=== PATIENT | male | born 1960 | race Caucasian/White ===

== ENCOUNTER 2020-07-25 07:08 | Observation (INO) | payer MEDICARE, SELFPAY ==
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
[2020-07-07 08:16] LABS: Absolute Lymphocyte Count 1.21 X10^3/uL (0.83-4.51); Absolute Neutrophil Count 4.8 X10^3/uL (2.0-7.7); Basophil# 0.07 X10^3/uL; Eosinophil# 0.47 X10^3/uL; Eosinophils% 6.7 % (0-5); Hematocrit 45.1 % (40-54); Hemoglobin 14.7 g/dL (13.0-16.5); Lymphocyte # 1.21 X10^3/ul (4.0); Lymphocyte % 17.2 % (19-41); Mean Corp Hgb Conc 32.6 g/dL (32-36); Mean Corpuscular Hgb 30.3 pg (27.0-32.0); Monocyte# 0.47 X10^3/uL; Monocyte% 6.7 % (0-10); NRBC Flagged by Analyzer 0 % (0-5); Neutrophil # 4.78 X10^3/uL (2.7-7.7); Platelet Count 267 K/mm3 (150-450); RBC Distribution Width CV 11.9 % (11.6-14.6); RBC Distribution Width SD 41.1 fl (35.1-43.9); Red Blood Count 4.85 M/mm3 (4.6-6.2)
[2020-07-07 08:37] LABS: Anion Gap 6 (5-15); BUN 11 mg/dL (7-18); Calcium,Total 9.2 mg/dL (8.5-10.1); Chloride 103 mmol/L (98-107); Creatinine, Serum 0.92 mg/dL (0.70-1.30); EST Glomerular Filtration Rate 90 mL/min (>60); Est Glom Filt Rate - Afr Amer 109 mL/min (>60); Glucose 114 mg/dL (74-106); Potassium 4.2 mmol/L (3.5-5.1); Sodium Level 136 mmol/L (136-145)
[2020-07-11 12:27] LABS: Magnesium 2.1 mg/dL (1.6-2.6)
[2020-07-25] VITALS (15 sets, daily range): BP systolic 93–121; BP diastolic 62–86; PULSE 74–99; RESP 16–18; TEMP 36.1–37.1; O2SAT 93–100; BMI 23.2
[2020-07-25] MEDS: Scopolamine 1mg/72hr Patch 1 PATCH TD (07:15)
[2020-07-25] MEDS: Lactated Ringers 1,000 ML 75 ML IV (07:20)
[2020-07-25] MEDS: Lactated Ringers 1,000 ML 999 ML IV ×2 (07:20→11:00)
[2020-07-25] MEDS: Gabapentin 600 MG Tablet PO (07:40)
[2020-07-25] MEDS: Acetaminophen 500 MG Tablet 1000 MG PO ×3 (07:59→21:48)
[2020-07-25 09:21] LABS: Bedside Glucose 104 mg/dL (70-110)
--- NOTE | 2020-07-25 09:45 | FEM_PTH ---
PATIENT: ISATU FLOWERS LOC: [facility]3 U#:[id number] AGE/SX: 60/M ROOM: DC310 RE07/25/[address]: Dr. James Valentin MD : 1960 BED: 1 DIS: 07/26/2020 SPEC #: [id number] RECD: 07/25/20 11:33 STATUS: WESLEY MADERA #: [id number] CAMILO: 07/25/20 09:[address]: Mahendra Dowell DEPT: SURGICAL PATHOLOGY RECD BY: Cecile Cook ENTERED: 07/25/20 13:23 SP TYPE: FEM HEAD OTHR DR: Dr. Herve Dowell MD Tissues: Femoral region, NOS Procedures: Decalcification bone/plaque Surgery Specimen Level IV HEADER OPERATION: ERAS, total hip anterior approach PRE-OP DIAGNOSIS: Severe right hip osteoarthritis TISSUE SUBMITTED: Femoral head MICROSCOPIC DIAGNOSIS Right hip, total hip resection: Severe degenerative joint disease. AM:lester 07/30/2020 MICROSCOPIC DESCRIPTION Slides are reviewed. GROSS DESCRIPTION Received is one container designated right femoral head. The specimen consists of a grijalva femoral head with portion of femoral neck. The femoral head measures 5.5 x 6 x 4.5 cm. Also present in the container is a detached piece of bone consistent with portion of femoral neck measuring 3.5 x 3.5 x 1 cm. No soft tissue is identified. The articular surface displays prominent osteophyte formation, eburnation and bone erosion. Cork Mixer sections are submitted in one cassette after decalcification. / SJ:lester 07/25/20 TC:5 CPT: 47560, 04289
[2020-07-25] MEDS: Cefazolin 2 GM in 0.9% Normal Saline 100 ML IV (10:03)
--- NOTE | 2020-07-25 10:44 | RAD_ITS ---
STUDY: X-RAY - PELVIS AND RIGHT HIP REASON FOR EXAM: Male, 60 years old. TOTAL ANTERIOR HIP TECHNIQUE: 1 views of the pelvis and hip. COMPARISON: None. FINDINGS: Status post right total hip replacement. There is good alignment. RAD/Hip 1 view with Pelvis IMPRESSION: Status post right total hip replacement. There is good alignment. Electronically Signed: Phuc De Leon MD at 8:40 EST , Service support ,
[2020-07-25] MEDS: Lactated Ringers 1,000 ML 125 ML IV ×2 (11:00→14:03)
--- NOTE | 2020-07-25 11:14 | OP.PCM_ITS ---
Report of Operation Date of Procedure: 07/25/20 Pre-Operative Diagnosis: Right hip severe osteoarthritis Post-Operative Diagnosis: Right hip severe osteoarthritis Surgery/Procedure Performed:: Right minimally invasive direct anterior total hip replacement Description of Surgical Findings:: Stable hip with equal leg length silk screen printer machine: Meredith Ibarra Type of Anesthesia:: Spinal Anesthesiologist: Errol Choi Special Medications: 2 g Ancef, 1 g TXA at incision, 1 g TXA closure, 10 mg Decadron, joint cocktail (5 mg Duramorph, 30 mL of 0.5% Ropivicaine, 1000 units of epinephrine, 30 mg of Toradol) Specimen's removed: bony cuts Estimated Blood Loss (mL): 250 Fluids Replaced: 1500 ml Description of Procedure: Components used: 1. Accolade 2 [place] femoral stem size 5 132? 2. Rody trident 2 acetabular shell size 56 mm 3. Rody X3 polyethylene F3 4. Rody Biolox delta 36mm, -5mm femoral head Brief history operative indications: 60 yo m who failed conservative measures for their hip osteoarthritis. X-rays were consistent with osteoarthritis including joint space narrowing, osteophyte formation and subchondral cysts. Total hip replacement was discussed with the patient with risks and benefits including but not limited to blood loss, DVTs, PEs, neurovascular damage, dislocation, general risks of anesthesia including loss of life. Patient demonstrated an understanding medical clearance is obtained the patient was consented for surgery. Procedure: On the date of procedure the patient's r hip was marked in the preoperative area. Patient was then taken back to the operating room where anesthesia assumed control of the C-spine and airway and administered anesthetic. Patient was transferred to the operating table and placed in the supine position. The hips were placed at the break of the bed and a sacral bump was placed. The R lower extremity was then prepped out in a sterile fashion using chlorhexidine while the surgeon scrubbed. The PA was vital in the positioning of the patient. Upon reentering the room the R lower extremity was draped in the standard orthopedic fashion and the incision was marked. A timeout was called and everyone agreed upon the side, the site, the procedure be performed, antibody given, and patient's identity. At this time incision was made through skin, subcutaneous tissue, and fat down to fascia. The fascia was then incised and the TFL was retracted laterally. A retractor was placed on the lateral border of the femoral neck. Attention was directed to the inferior portion of the approach and all crossing vessels were identified and appropriately coagulated. A retractor was then placed on the medial portion of the femoral neck. The anterior capsule was then cleared of all soft tissue and then H shaped capsulotomy was made. The retractors were then placed inside the capsule. The femoral neck was identified and a cleanup cut was made. At this time a power corkscrew was used to remove the femoral head. Attention was then turned toward the acetabulum where the soft tissues were appropriately retracted and the acetabulum was sequentially reamed to 56 mm. A 56 mm cup was then selected and impacted into place. Acetabular liner was impacted into place and locking mechanism was verified. The position of the acetabular cup was then verified under live fluoroscopy. Attention was then turned to the femur. Soft tissue releases on the medial and lateral femoral neck were appropriately done, the leg was externally rotated and lateralized. A Larsen retractor was placed medially and proximally to the greater trochanter this allowed appropriate visualization and exposure of the femoral canal. Rongeour was then used to remove excess lateral bone. A canal finder and entry broach were used to open the proximal canal. Once we verified we were down the femoral canal we subsequently broached up to a size 5 femur. The appropriate neck was placed in the previously selected head was trialed with a -5 mm neck. Traction was pulled and the hip was reduced with internal rotation. Once it was appropriately reduced and stability was checked. There was minimal shuck, equal leg lengths and appropriate stability with hyperextension and external rotation as well as with 90? flexion and internal rotation. Fluoroscopy was then also used to verify the position of the components and leg lengths using the contralateral side for comparison. The trial components were then dislocated the proximal femur was again exposed and the components were removed from the wound. The final components were verified and opened. The wound was copiously irrigated out with normal saline. The acetabulum was checked for any residual debris. The final components were placed and impacted. Traction and internal rotation were again used to reduce the hip. After adequate reduction the hip remained stable with appropriate leg lengths. The final components were once again checked with live fluoroscopy and were found to be satisfactory. The wound was then copiously irrigated with normal saline once more, and hemostasis was obtained. Closure was then done using #1 Vicryl runner to close the fascia. A 2-0 vicryl interuppted sutures were used to close the subcutaneous skin. A 3-0 Monocryl and Steri-Strips were used for final skin closure. A Silverlon dressing was placed. Patient was awakened by anesthesia and transferred [facility]. Radha ent was then transferred to the PACU for recovery. Postoperative plan: Patient will get 24 hours postop antibiotics. Patient will get in-house physical therapy and will be weight-bear as tolerated. Patient will follow up in office in 2 weeks for a wound check and x-rays. Aspirin 81 mg twice daily. - Complications none - Admit VTE Documentation VTE Present on Admission: No VTE Mechan Device Prophylaxis: SCD's, Thigh High JOHANNA Hose VTE Pharm Prophylaxis ordered?: Yes
--- NOTE | 2020-07-25 12:08 | RAD_ITS ---
STUDY: X-RAY - PELVIS AND RIGHT HIP REASON FOR EXAM: Male, 60 years old. Post Op -- AP both hips on single chapincito/lateral of op hip PACU TECHNIQUE: 2 views of the pelvis and hip. COMPARISON: None. FINDINGS: The patient is status post right hip replacement. There is good alignment. Postoperative soft tissue changes. RAD/Hip Min 2 Views (Portable) IMPRESSION: Status post right total hip replacement. There is good alignment. Postoperative soft tissue changes. Electronically Signed: Phuc De Leon MD at 12:27 EST , Service support ,
[2020-07-25] MEDS: Ensure Surgery 237 ML LIQUID PO ×2 (13:57→18:04)
[2020-07-25] MEDS: Gabapentin 100 MG Capsule PO ×2 (13:58→17:30)
--- NOTE | 2020-07-25 15:12 | NURSING ---
RN CM Assessment Introduced role of RN CM to patient and Selena at bedside.? Patient is alert, oriented and able?to participate in RN CM Assessment. ?Care providers, pharmacy, and demographics verified. Admit Dx: Rt THR Barriers/Issues: None PCP: Herve Dowell Specialists: Ortho- Dr Mahendra Dowell, Cardio- Dr Kin Larsen, Neuro- Dr Lynch Preferred Pharmacy: [facility], [place] Insurance: [facility] A/B Rx Benefit:?No, has Script Save with [facility] LNOK: Selena Neville LW/HPOA: States has a HPOA done, aware if brought in will place a copy on file. POA- son Kip Neville #[phone]. Living Arrangements:? Lives with , 26yo dtr, 36yo son Kip- is a hazmat truck driver and only home on the weekends. ADL?s: Independent with ambulation prior, has been using a single point cane for the past month. Independent with ADLs. Transportation: Both patient and drive, will transport upon DC. DME: Walk in shower w/grab bars, Cane, RTS, lift chair, 2WW HHC: None SNF: None Goal: Home and does not think will have any needs. Already scheduled for outpatient PT at [facility], first appointment Thursday07/30/2020. Has a walker at bedside. Denies any issues, questions, or concerns with DC planning at this time. Aware RNCM will remain available for any emerging needs. DC PLAN: Home with no additional needs identified at this time. RNCM f/u on PT/OT. LEANA Jacobo
[2020-07-25] MEDS: oxyCODONE 5 MG Tablet PO ×2 (15:32→21:44)
--- NOTE | 2020-07-25 15:46 | PN_ITS ---
Subjective: Seen post op in his room. He complains of mild discomfort in right hip, but denies any other new complaints. Vitals/I&O's: Vital Signs Temp Pulse Resp BP Pulse Ox 36.6 C 97 18 121/75 H 93 07/25/20 15:12 07/25/20 15:12 07/25/20 15:12 07/25/20 15:12 07/25/20 15:12 Oxygen Flow Rate (L/min) 6 Oxygen Delivery Method Room Air Weight: 73.4 kg Body Mass Index (BMI) 23.2 Intake and Output for Last 24 Hours 07/23/20 07/24/20 07/25/20 23:59 23:59 23:59 Intake Total 3340.75 / 3340.75 Balance 3340.75 / 3340.75 General: Alert, No apparent distress HEENT: Atraumatic, Normocephalic Oral: Moist Mucosa, No Gingival or Mucosal Lesions/ Ulcerations Neck: No Nodes, Thyroid Normal Size and Texture Lungs: Clear to auscultation, Normal air movement, No rhonchi, No wheeze Cardiovascular: Regular rate, Regular Rhythm, Normal S1, Normal S2, No murmurs Abdomen: Bowel Sounds Present, Soft, Non Tender, Non-Distended, No Hepato- splenomegaly Extremities: No edema, No Calf Tenderness, - - SCDs in place Skin: No rashes, No breakdown Psych/Mental Status: Normal Affect, Appropriate Microbiology Past 72 Hours 07/24/20 08:30 Interface Orders SARS-CoV-2 Antigen (Rapid) - Final Laboratory Results 07/25/20 07:28: POC Glucose 104 Current Medications Acetaminophen (Acetaminophen 500 Mg Tablet) 1,000 mg PO Q8 [facility] Last Admin: 07/25/20 14:01 Dose: 1,000 mg Documented by: Aspirin (Aspirin 81 Mg Tab.Chew) 81 mg PO BIDCM [facility] Atorvastatin Calcium (Atorvastatin Calcium 40 Mg Tablet) 40 mg PO QHS [facility] Cholecalciferol (Cholecalciferol (Vit D3) 1,000 Unit (25mcg)) 1,000 unit PO DAILY [facility] Clopidogrel Bisulfate (Clopidogrel Bisulfate 75 Mg Tablet) 75 mg PO DAILY [facility] Enteral Nutritional Formula (Ensure Surgery 237 Ml Liquid) 237 ml PO TIDCM [facility] Last Admin: 07/25/20 13:57 Dose: 237 ml Documented by: Famotidine (Famotidine 20 Mg Tablet) 20 mg PO DAILY [facility] Gabapentin (Gabapentin 100 Mg Capsule) 100 mg PO TIDCM [facility] Last Admin: 07/25/20 13:58 Dose: 100 mg Documented by: Lactated Ringer's () 1,000 mls @ 75 mls/hr IV .[id number] [facility] Stop: 07/25/20 23:04 Last Infusion: 07/25/20 11:46 Dose: Infused Documented by: Lactated Ringer's () 1,000 mls @ 125 mls/hr IV .Q8H [facility] Last Infusion: 07/25/20 15:09 Dose: 125 mls/hr Documented by: Cefazolin Sodium () 1 gm in 50 mls @ 150 mls/hr IV Q8H [facility] Stop: 07/26/20 02:19 Insulin Human Lispro (Insulin Lispro 100 Unit/Ml Insuln.Pen) 1 - 6 unit SC Q4H PRN PRN; Protocol PRN Reason: BG>/= 180, SEE PROTOCOL Isosorbide Mononitrate (Isosorbide Mononitrate 30 Mg Tablet) 30 mg PO BID [facility] Ketorolac Tromethamine (Ketorolac 15 Mg/Ml Vial) 15 mg IV Q6H PRN PRN PRN Reason: Pain Score 1-5 Stop: 07/26/20 17:01 Lisinopril (Lisinopril 5 Mg Tablet) 5 mg PO DAILY [facility] Meloxicam (Meloxicam 7.5 Mg Tablet) 7.5 mg PO BID [facility] Morphine Sulfate (Morphine 2 Mg/Ml Syringe) 2 - 4 mg IV Q2H PRN PRN PRN Reason: Pain Score 4-10 Ondansetron HCl (Ondansetron 4 Mg/2 Ml Vial) 4 mg IV Q8H PRN PRN PRN Reason: NAUSEA Oxycodone HCl (Oxycodone 5 Mg Tablet) 5 - 10 mg PO Q4H PRN PRN PRN Reason: Pain Score 4-10 Last Admin: 07/25/20 15:32 Dose: 5 mg Documented by: Pantoprazole Sodium (Pantoprazole Sodium 40 Mg Tablet) 40 mg PO DAILY [facility] Promethazine HCl (Promethazine 25 Mg/Ml Syringe) 12.5 mg IM Q6H PRN PRN; Protocol PRN Reason: NAUSEA/VOMITING Senna/Docusate Sodium (Senna/Docusate Sodium 1 Tablet) 2 tablet PO BID [facility] Sodium Chloride (0.9% Saline Lock 10 Ml Syringe) 10 - 40 ml IV UD PRN PRN Reason: SALINE FLUSH Spironolactone (Spironolactone 25 Mg Tablet) 25 mg PO DAILY [facility] STROKE Vital Signs/Narrative: Vital Signs Temp Pulse Resp BP Pulse Ox 07/25/20 15:12 36.6 C 97 18 121/75 H 93 07/25/20 15:05 94 07/25/20 13:33 36.4 C L 93 18 121/75 H 93 07/25/20 12:56 36.5 C L 83 16 104/66 99 07/25/20 12:45 86 16 104/65 99 07/25/20 12:42 86 16 100/68 100 07/25/20 12:32 85 16 100/68 99 07/25/20 12:15 87 16 105/66 100 07/25/20 12:00 87 16 106/64 100 Medical Necessity - Tobacco Use Smoking Status: Former smoker Tobacco Use: Non-smoker Assessment/Plan 1. status post right anterior hip replacement mgmt per orthopaedics 2. CAD s/p 4 stents currently stable last PCI in 2018 plan: * resume clopidogrel when ok by ortho * on ASA for VTE prophylaxis (81 BID) resume daily after done with VTE prophylactic dosing * follow up with Dr. Prado ([facility]) as outpt 3. Charcot Merced Tooth Pt notes that it does not affect hip significantly Plan: follow up with neurology as outpt 4. VTE prophylaxis: per ortho: ASA 81 BID. Thank you for the consult. The hospitalist service will follow along during the hospitalization. Medically stable for discharge when felt appropriate by orthopaedics. Inpatient E&M: 69119 Subs Hosp L2
[2020-07-25] MEDS: Cefazolin 1 GM/50 ML BAG IV (17:30)
[2020-07-25] MEDS: Aspirin 81 MG TAB.CHEW PO (17:30)
[2020-07-25] MEDS: 0.9% Saline Lock 10 ML Syringe IV (21:42)
[2020-07-25] MEDS: Senna/Docusate Sodium 1 Tablet 2 TABLET PO (21:48)
[2020-07-25] MEDS: Isosorbide Mononitrate 30 MG Tablet PO (21:49)
[2020-07-25] MEDS: Rosuvastatin 20 MG Tablet PO (21:53)
[2020-07-26 01:40] VITALS: BP 108/66; PULSE 57; RESP 16; TEMP 36.6; O2SAT 93
[2020-07-26] MEDS: Cefazolin 1 GM/50 ML BAG IV (01:48)
[2020-07-26] MEDS: 0.9% Saline Lock 10 ML Syringe IV (01:52)
[2020-07-26 05:33] VITALS: BP 105/74; PULSE 60; RESP 17; TEMP 36.4; O2SAT 92
[2020-07-26] MEDS: Acetaminophen 500 MG Tablet 1000 MG PO ×2 (05:38→13:50)
[2020-07-26 06:30] LABS: Hematocrit 39.1 % (40-54); Hemoglobin 12.4 g/dL (13.0-16.5); Mean Corp Hgb Conc 31.7 g/dL (32-36); Mean Corpuscular Hgb 30.4 pg (27.0-32.0); Mean Corpuscular Volume 95.8 fL (80-94); Mean Platelet Vol. 10.3 fl (6.2-12.0); Platelet Count 217 K/mm3 (150-450); RBC Distribution Width CV 12.4 % (11.6-14.6); RBC Distribution Width SD 42.6 fl (35.1-43.9); Red Blood Count 4.08 M/mm3 (4.6-6.2)
[2020-07-26 06:52] LABS: Anion Gap 6 (5-15); BUN 13 mg/dL (7-18); BUN/Creat Ratio 14.4 RATIO (10-20); Calcium,Total 8.8 mg/dL (8.5-10.1); Chloride 106 mmol/L (98-107); EST Glomerular Filtration Rate 91 mL/min (>60); Est Glom Filt Rate - Afr Amer 110 mL/min (>60); Estimated Creatinine Clearance 90.12 ml/min; Glucose 121 mg/dL (74-106); Potassium 4.2 mmol/L (3.5-5.1); Sodium Level 139 mmol/L (136-145)
[2020-07-26] MEDS: Aspirin 81 MG TAB.CHEW PO (08:00)
[2020-07-26] MEDS: Gabapentin 100 MG Capsule PO ×2 (08:00→11:53)
[2020-07-26] MEDS: oxyCODONE 5 MG Tablet PO ×2 (08:00→13:50)
[2020-07-26] MEDS: Ensure Surgery 237 ML LIQUID PO ×2 (08:01→11:53)
--- NOTE | 2020-07-26 08:25 | PN.ORTHO_ITS ---
Subjective: The patient was sitting in bedside chair upon examination. Patient denies any chest pain, shortness of breath, dizziness, lightheadedness, nausea or vomiting, or calf pain. Pain is controlled on medications. No adverse overnight events. Overall patient is doing well. His only complaint is thigh soreness. Pain is significantly improved postoperatively. Patient is ready to go home today. Medicine has cleared patient for discharge. Objective: Vital signs stable and afebrile. Patient is able to plantarflex and dorsiflex actively. Sensation is intact to light touch to saphenous, sural, superficial and deep peroneal, and tibial distribution. Dressing is clean dry and intact. Negative Homans bilaterally, negative signs and symptoms of DVT. - Physical Exam Vitals/I&O's: Vital Signs Temp Pulse Resp BP Pulse Ox 97.6 F L 60 17 105/74 92 07/26/20 05:33 07/26/20 05:33 07/26/20 05:33 07/26/20 05:33 07/26/20 05:33 Oxygen Flow Rate (L/min) 6 Oxygen Delivery Method Room Air Weight: 73.4 kg Body Mass Index (BMI) 23.2 Intake and Output for Last 24 Hours 07/24/20 07/25/20 07/26/20 23:59 23:59 23:59 Intake Total 5036.58 / 5736.58 1516.67 / 1516.67 Output Total 900 / 900 Balance 5036.58 / 4836.58 616.67 / 616.67 General: Alert, Oriented x3, Cooperative, No apparent distress Microbiology Past 72 Hours 07/24/20 08:30 Interface Orders SARS-CoV-2 Antigen (Rapid) - Final Laboratory Results 07/25/20 07:28: POC Glucose 104 07/26/20 06:12: WBC 14.0 H, RBC 4.08 L, Hgb 12.4 L, Hct 39.1 L, MCV 95.8 H, MCH 30.4, MCHC 31.7 L, RDW Std Deviation 42.6, RDW Coeff of Chip 12.4, Plt Count 217, MPV 10.3 07/26/20 06:12: Sodium 139, Potassium 4.2, Chloride 106, Carbon Dioxide 27.0, Anion Gap 6, BUN 13, Creatinine 0.90, Estim Creat Clear Calc 90.12, Est GFR (MDRD) Af Amer 110, Est GFR (MDRD) Non-Af 91, BUN/Creatinine Ratio 14.4, Glucose 121 H, Calcium 8.8 Current Medications Acetaminophen (Acetaminophen 500 Mg Tablet) 1,000 mg PO Q8 [facility] Last Admin: 07/26/20 05:38 Dose: 1,000 mg Documented by: Aspirin (Aspirin 81 Mg Tab.Chew) 81 mg PO BIDCM [facility] Last Admin: 07/26/20 08:00 Dose: 81 mg Documented by: Cholecalciferol (Cholecalciferol (Vit D3) 1,000 Unit (25mcg)) 1,000 unit PO DAILY [facility] Clopidogrel Bisulfate (Clopidogrel Bisulfate 75 Mg Tablet) 75 mg PO DAILY [facility] Enteral Nutritional Formula (Ensure Surgery 237 Ml Liquid) 237 ml PO TIDCM [facility] Last Admin: 07/26/20 08:01 Dose: 237 ml Documented by: Famotidine (Famotidine 20 Mg Tablet) 20 mg PO DAILY [facility] Gabapentin (Gabapentin 100 Mg Capsule) 100 mg PO TIDCM [facility] Last Admin: 07/26/20 08:00 Dose: 100 mg Documented by: Lactated Ringer's () 1,000 mls @ 125 mls/hr IV .Q8H [facility] Last Admin: 07/26/20 07:48 Dose: Not Given Documented by: Insulin Human Lispro (Insulin Lispro 100 Unit/Ml Insuln.Pen) 1 - 6 unit SC Q4H PRN PRN; Protocol PRN Reason: BG>/= 180, SEE PROTOCOL Isosorbide Mononitrate (Isosorbide Mononitrate 30 Mg Tablet) 30 mg PO BID [facility] Last Admin: 07/25/20 21:49 Dose: 30 mg Documented by: Ketorolac Tromethamine (Ketorolac 15 Mg/Ml Vial) 15 mg IV Q6H PRN PRN PRN Reason: Pain Score 1-5 Stop: 07/26/20 17:01 Lisinopril (Lisinopril 5 Mg Tablet) 5 mg PO DAILY [facility] Meloxicam (Meloxicam 7.5 Mg Tablet) 7.5 mg PO BID [facility] Morphine Sulfate (Morphine 2 Mg/Ml Syringe) 2 - 4 mg IV Q2H PRN PRN PRN Reason: Pain Score 4-10 Ondansetron HCl (Ondansetron 4 Mg/2 Ml Vial) 4 mg IV Q8H PRN PRN PRN Reason: NAUSEA Oxycodone HCl (Oxycodone 5 Mg Tablet) 5 - 10 mg PO Q4H PRN PRN PRN Reason: Pain Score 4-10 Last Admin: 07/26/20 08:00 Dose: 5 mg Documented by: Pantoprazole Sodium (Pantoprazole Sodium 40 Mg Tablet) 40 mg PO DAILY [facility] Promethazine HCl (Promethazine 25 Mg/Ml Syringe) 12.5 mg IM Q6H PRN PRN; Protocol PRN Reason: NAUSEA/VOMITING Rosuvastatin Calcium (Rosuvastatin 20 Mg Tablet) 20 mg PO QHS [facility] Last Admin: 07/25/20 21:53 Dose: 20 mg Documented by: Senna/Docusate Sodium (Senna/Docusate Sodium 1 Tablet) 2 tablet PO BID [facility] Last Admin: 07/25/20 21:48 Dose: 2 tablet Documented by: Sodium Chloride (0.9% Saline Lock 10 Ml Syringe) 10 - 40 ml IV UD PRN PRN Reason: SALINE FLUSH Last Admin: 07/26/20 01:52 Dose: 10 ml Documented by: Spironolactone (Spironolactone 25 Mg Tablet) 25 mg PO DAILY [facility] Medical Necessity - Tobacco Use Smoking Status: Former smoker Tobacco Use: Non-smoker Assessment/Plan 1. S/P right direct anterior total hip arthroplasty POD #1 2. Continue Pain Medications: Tylenol and oxycodone as needed 3. DVT Prophylaxis: Take 81 mg aspirin twice daily for 4 weeks postoperatively for DVT prophylaxis 4. PT/OT: Weightbearing as tolerated 5. H & H: 12.4/39.1, asymptomatic. Postoperative anemia secondary to acute blood loss from surgery without any intra operative complications. 6. Reactive leukocytosis: Currently 14.0, afebrile. Patient did receive Decadron intraoperatively 7. Continue postop medical management per medicine: Medicine has cleared patient for discharge 8. Encouraged Incentive Spirometry 9. Disposition: Orthopedically stable, plan will be for discharge home today. Prescriptions will be E scribed to [facility] in [facility]. Patient has outpatient physical therapy established. Patient will follow-up per postop inst ructions. We discussed no driving for 6 weeks postoperatively due to a right total hip arthroplasty. He did voice understanding and agreement. I have reviewed the [place] Automated Rx Reporting System (OARRS) report for this patient for refill pattern and other prescriber involvement as part of the appropriate surveillance for the provision of acute and chronic controlled medications. The report was requested and reviewed on the date of this entry and was considered in the prescribing process.
--- NOTE | 2020-07-26 08:31 | DCINST_ITS ---
Discharge Diet: No Restrictions Discharge Activity: May Not Drive - while taking narcotic pain medications. May shower in (days): 1 - Okay to shower as long as dressing is intact to skin. Turn dressing away from water Ice area for (Minutes): 20 - Every 1-2 hours while awake Weight Bearing Status: Weight bearing as tolerated Elevate: Operative Extremity Additional Activity Instructions:: Wear elastic stockings for 2 weeks. DO NOT use alcohol with narcotic pain medication. DO NOT make important decisions while taking narcotic medication. If you have problems with taking your medication (rash, itching, nausea, etc.) call the office at once. Call your doctor if your incision/area has: Increased Pain/ Swelling, Increased Redness, Foul Smelling Discharge Call your doctor if you observe: Fever of 101 or Higher Remove Dressing in (days):: 4 - Okay for dressing to be removed on July 30, 2020 Additional Instructions: Follow [facility] Post-op Instructions. Once postoperative dressing has been removed only use gentle soap and water over the incision. Do not use any ointments, Neosporin, salves, alcohol pads over the incision for 6 weeks postoperatively. Do not submerge underwater for 6 weeks postoperatively. No driving for 6 weeks postoperatively Allergies/Adverse Reactions: Allergies atorvastatin [From Lipitor] Allergy (Verified 07/25/20 17:21) Other bee venom protein (honey bee) Allergy (Verified 07/25/20 07:50) Hives Penicillins [PCN] Allergy (Verified 07/25/20 07:50) Hives Medications to take at Discharge Cholecalciferol (VIT D3) [Vitamin D3] 1,000 unit PO DAILY 07/11/20 Clopidogrel Bisulfate [Clopidogrel] 75 mg PO DAILY 07/11/20 Gabapentin [Neurontin] 100 mg PO TIDCM 07/11/20 Isosorbide Mononitrate [Imdur] 30 mg PO BID 07/11/20 Lisinopril [Zestril] 5 mg PO DAILY 07/11/20 Omeprazole 40 mg PO DAILY 07/11/20 Rosuvastatin Calcium [Crestor] 20 mg PO DAILY 07/11/20 Spironolactone [Aldactone] 25 mg PO DAILY 07/11/20 Acetaminophen [Tylenol] 1,000 mg PO Q8 14 Days tablet 07/26/20 Aspirin [Aspirin, Baby] 81 mg PO BIDCM 30 Days tab.chew 07/26/20 Oxycodone [Oxyir] 5 - 10 mg PO Q4H PRN PRN 4 Days #48 tablet 07/26/20 Senna/Docusate Sodium [Senokot-S] 2 tab PO BID #14 tab 07/26/20 The following prescriptions were given: Oxycodone [Oxyir] 5 - 10 mg PO Q4H PRN PRN 4 Days #48 tablet PRN Reason: Pain Score 4-10 Transmission Status: Received by [address] Senna/Docusate Sodium [Senokot-S] 2 tab PO BID #14 tab Transmission Status: Pending to [address] Primary Care Physician: Herve Dowell MD [Primary Care Provider] - Test Results: Test results from this visit will be discussed in further detail at your follow- up appointment, if applicable. Please Follow Up With: Physical Therapy When: 07/30/20 Please Follow Up With: Jhon Funez PA-C When: 08/08/20 @ 9:30 am
[2020-07-26 08:59] VITALS: BP 92/46; PULSE 60; RESP 20; TEMP 36.4; O2SAT 93
--- NOTE | 2020-07-26 09:00 | NURSING ---
pt back in room- per [employer] states pt became dizzy while down in therapy laying down doing his exercises- Blessing reports bp ranged from 74/45-82/52 being checked about 5 minutes apart. pt spo2 87-89% at that time as well. pt states i got a sharp pain in my leg and that is when i started to feel funny. pt resting in bed currently, denies any dizziness/lightheadedness or pain.
--- NOTE | 2020-07-26 09:17 | CASEMGMT ---
TORRIE LANDRY note: Intro role of CM to patient and THOMPSON form explained re: Observation status for treatment of right hip osteoarthritis/right total hip replacement. Explained hospitalization will be paid per insurance policy for Outpatient billing and condition will continue to be evaluated for Inpt necessity. Also let pt know that [facility] sends paper in the billing packet with their phone number if questions arise. Pt verbalizes understanding and does not have further questions. Form signed, copy made and placed in chart, and original given to pt. Rehana HAILE RN CM
[2020-07-26 10:35] VITALS: BP 113/71; PULSE 72; RESP 18; TEMP 36.7; O2SAT 97
[2020-07-26] MEDS: Clopidogrel Bisulfate 75 MG Tablet PO (10:38)
[2020-07-26] MEDS: Pantoprazole Sodium 40 MG Tablet PO (10:38)
[2020-07-26] MEDS: Senna/Docusate Sodium 1 Tablet 2 TABLET PO (10:38)
[2020-07-26] MEDS: Famotidine 20 MG Tablet PO (10:38)
[2020-07-26 11:49] VITALS: BP 117/83; PULSE 72; RESP 18; TEMP 36.6; O2SAT 93
--- NOTE | 2020-07-26 13:25 | PCM.PN.HOSP ---
Subjective: Doing well, no issues overnight. He did have an episode of vasovagal presyncope, likely secondary to recent surgery, fluid status and ambulating for the first time. He has since recovered and is doing well and is asymptomatic. Vitals/I&O's: Vital Signs Temp Pulse Resp BP Pulse Ox 97.9 F 72 18 117/83 H 93 07/26/20 11:49 07/26/20 11:49 07/26/20 11:49 07/26/20 11:49 07/26/20 11:49 Oxygen Flow Rate (L/min) 2 Oxygen Delivery Method Room Air Weight: 161 lb 13.109 oz Body Mass Index (BMI) 23.2 Intake and Output for Last 24 Hours 07/24/20 07/25/20 07/26/20 23:59 23:59 23:59 Intake Total 5036.58 / 5736.58 1516.67 / 1516.67 Output Total 900 / 900 Balance 5036.58 / 4836.58 616.67 / 616.67 General: Alert, Oriented x3, Cooperative, No apparent distress HEENT: Atraumatic, PERRLA, EOMI, Normocephalic Oral: Moist Mucosa Neck: Supple, No JVD Lungs: Clear to auscultation, Normal air movement, No rhonchi, No wheeze, No rales Cardiovascular: Regular rate, Regular Rhythm, Normal S1, Normal S2, No murmurs Abdomen: Soft, Non Tender, Non-Distended, No Hepato-splenomegaly Extremities: No edema, Capillary Refill Less than 3 Seconds Skin: No rashes, No breakdown, Incision - CDI Neurological: Neuro grossly intact, Sensory exam intact to light touch and pain Psych/Mental Status: Normal Affect, Appropriate Microbiology Past 72 Hours 07/24/20 08:30 Interface Orders SARS-CoV-2 Antigen (Rapid) - Final Laboratory Results 07/26/20 06:12: WBC 14.0 H, RBC 4.08 L, Hgb 12.4 L, Hct 39.1 L, MCV 95.8 H, MCH 30.4, MCHC 31.7 L, RDW Std Deviation 42.6, RDW Coeff of Chip 12.4, Plt Count 217, MPV 10.3 07/26/20 06:12: Sodium 139, Potassium 4.2, Chloride 106, Carbon Dioxide 27.0, Anion Gap 6, BUN 13, Creatinine 0.90, Estim Creat Clear Calc 90.12, Est GFR (MDRD) Af Amer 110, Est GFR (MDRD) Non-Af 91, BUN/Creatinine Ratio 14.4, Glucose 121 H, Calcium 8.8 Current Medications Acetaminophen (Acetaminophen 500 Mg Tablet) 1,000 mg PO Q8 [facility] Last Admin: 07/26/20 05:38 Dose: 1,000 mg Documented by: Aspirin ([facility]in 81 Mg [facility]Chew) [facility] Last Admin: 07/26/20 08:00 Dose: 81 mg Documented by: Cholecalciferol (Cholecalciferol (Vit D3) 1,000 Unit (25mcg)) 1,000 unit PO DAILY [facility] Last Admin: 07/26/20 10:37 Dose: 1,000 unit Documented by: Clopidogrel Bisulfate (Clopidogrel Bisulfate 75 Mg Tablet) 75 mg PO DAILY [facility] Last Admin: 07/26/20 10:38 Dose: 75 mg Documented by: Enteral Nutritional Formula (Ensure Surgery 237 Ml Liquid) 237 ml PO TIDCM [facility] Last Admin: 07/26/20 11:53 Dose: 237 ml Documented by: Famotidine (Famotidine 20 Mg Tablet) 20 mg PO DAILY [facility] Last Admin: 07/26/20 10:38 Dose: 20 mg Documented by: Gabapentin (Gabapentin 100 Mg Capsule) 100 mg PO TIDCM [facility] Last Admin: 07/26/20 11:53 Dose: 100 mg Documented by: Lactated Ringer's () 1,000 mls @ 125 mls/hr IV .Q8H [facility] Last Admin: 07/26/20 07:48 Dose: Not Given Documented by: Insulin Human Lispro (Insulin Lispro 100 Unit/Ml Insuln.Pen) 1 - 6 unit SC Q4H PRN PRN; Protocol PRN Reason: BG>/= 180, SEE PROTOCOL Isosorbide Mononitrate (Isosorbide Mononitrate 30 Mg Tablet) 30 mg PO BID [facility] Last Admin: 07/26/20 09:24 Dose: Not Given Documented by: Ketorolac Tromethamine (Ketorolac 15 Mg/Ml Vial) 15 mg IV Q6H PRN PRN PRN Reason: Pain Score 1-5 Stop: 07/26/20 17:01 Lisinopril (Lisinopril 5 Mg Tablet) 5 mg PO DAILY [facility] Last Admin: 07/26/20 09:24 Dose: Not Given Documented by: Morphine Sulfate (Morphine 2 Mg/Ml Syringe) 2 - 4 mg IV Q2H PRN PRN PRN Reason: Pain Score 4-10 Ondansetron HCl (Ondansetron 4 Mg/2 Ml Vial) 4 mg IV Q8H PRN PRN PRN Reason: NAUSEA Oxycodone HCl (Oxycodone 5 Mg Tablet) 5 - 10 mg PO Q4H PRN PRN PRN Reason: Pain Score 4-10 Last Admin: 07/26/20 08:00 Dose: 5 mg Documented by: Pantoprazole Sodium (Pantoprazole Sodium 40 Mg Tablet) 40 mg PO DAILY [facility] Last Admin: 07/26/20 10:38 Dose: 40 mg Documented by: Promethazine HCl (Promethazine 25 Mg/Ml Syringe) 12.5 mg IM Q6H PRN PRN; Protocol PRN Reason: NAUSEA/VOMITING Rosuvastatin Calcium (Rosuvastatin 20 Mg Tablet) 20 mg PO QHS [facility] Last Admin: 07/25/20 21:53 Dose: 20 mg Documented by: Senna/Docusate Sodium (Senna/Docusate Sodium 1 Tablet) 2 tablet PO BID [facility] Last Admin: 07/26/20 10:38 Dose: 2 tablet Documented by: Sodium Chloride (0.9% Saline Lock 10 Ml Syringe) 10 - 40 ml IV UD PRN PRN Reason: SALINE FLUSH Last Admin: 07/26/20 01:52 Dose: 10 ml Documented by: Spironolactone (Spironolactone 25 Mg Tablet) 25 mg PO DAILY [facility] Last Admin: 07/26/20 09:24 Dose: Not Given Documented by: STROKE Vital Signs/Narrative: Vital Signs Temp Pulse Resp BP Pulse Ox 07/26/20 11:49 97.9 F 72 18 117/83 H 93 07/26/20 10:35 98.1 F 72 18 113/71 97 Medical Necessity - Tobacco Use Smoking Status: Former smoker Tobacco Use: Non-smoker Assessment/Plan 1. Status post right anterior hip replacement on 07/25/2020 -Patient per primary -Okay for discharge from a medicine standpoint his blood pressure medications were held this morning he can resume those tomorrow -If he has another 1 of these vasovagal episodes at home he should return to the ER 2. CAD status post stents/HTN/HLD -Blood pressures are stable and he is not on oxygen and is feeling well -Resume Plavix, aspirin, isosorbide mononitrate, lisinopril, Crestor, Aldactone -Follow-up with his PCP in 3 to 5 days 3. GERD -Stable -Continue with PPI DVT: Aspirin twice daily OBSV E&M: [id number] Subsequent observation care L2
== END 2020-07-26 14:05 | disposition home or self-care (01) ==
LOC: SDC 10:11 → MS3 10:11
PROVIDERS: Admitting Provider Specialist; PCP Family Medicine; Referring Provider Specialist; Visit Provider Family Medicine
PROC: (CPT 27284; principal; 2020-07-25 09:20)
DX: M16.11 Unilateral primary osteoarthritis, right hip (principal); Z20.828 Contact with and (suspected) exposure to other viral communicable diseases; I25.10 Atherosclerotic heart disease of native coronary artery without angina pectoris; I10 Essential (primary) hypertension; G60.0 Hereditary motor and sensory neuropathy; M06.9 Rheumatoid arthritis, unspecified; K21.9 Gastro-esophageal reflux disease without esophagitis; E78.5 Hyperlipidemia, unspecified; I25.2 Old myocardial infarction; Z79.899 Other long term (current) drug therapy; Z79.02 Long term (current) use of antithrombotics/antiplatelets; Z79.82 Long term (current) use of aspirin; Z95.5 Presence of coronary angioplasty implant and graft; Z87.891 Personal history of nicotine dependence
CPT/HCPCS: 01214; 27130; 36415; 73501; 73502; 76000; 80048; 82962; 83735; 85025; 85027; 87081; 87426; 88305; 88307; 88311; 96361; 96365; 96366; 97110; 97116; 97162; 97166; 97530; 97535; 99218; 99251; C1776; C9803; J7120; A4216; G0378; G0379; G0463; J2405

== ENCOUNTER → 2025-02-24 | Outpatient (CLI) | payer MEDICARE, SELFPAY ==
--- NOTE | 2025-02-24 09:44 | ECHOD_ITS ---
Reason For Study Reason For Study: CAD/ASHD Procedure This was a 2D Doppler, Color Flow transthoracic echocardiogram. Exam performed in department. Left Ventricle Normal LV size. The estimated ejection fraction is 50 %. No regional wall motion abnormalities noted. Right Ventricle Normal RV size. Normal systolic function. Atria The left atrium is moderately enlarged. Normal right atrium. No doppler evidence for ASD. Mitral Valve There is no mitral valve stenosis. Trivial mitral valve insufficiency. Tricuspid Valve There is no tricuspid stenosis. Trivial tricuspid valve insufficiency. Unable to estimate RV systolic pressure due to insufficient tricuspid regurgitant envelope. Aortic Valve Trisinus/trileaflet aortic valve. There is no aortic stenosis. No aortic valve insufficiency. Pulmonic Valve There is no pulmonic valvular stenosis. No pulmonic valve insufficiency. Great Vessels Normal sized aortic root. Pericardium/Pleural No pericardial effusion. MMode/2D Measurements & Calculations LVIDd: 4.9 cm IVSd: 1.2 cm LVOT diam: 2.0 cm LVIDs: 4.4 cm LVPWd: 1.2 cm LVOT area: 3.2 cm2 FS: 11.1 % Ao root diam: 3.4 cm LAV(MOD-bp): 81.6 ml LVAd ap4: 29.6 cm2 LAV(MOD-bp) Indexed: 42.4 ml/m2 LVLd ap4: 7.9 cm LAV(MOD-sp2): 87.9 ml EDV(MOD-sp4): 92.9 ml LAV(MOD-sp4): 71.0 ml EDV(sp4-el): 95.0 ml LVAs ap4: 24.1 cm2 LVLs ap4: 7.6 cm ESV(MOD-sp4): 63.6 ml ESV(sp4-el): 65.1 ml EF(MOD-sp4): 31.5 % EF(sp4-el): 31.5 % SV(MOD-sp4): 29.3 ml SV(sp4-el): 29.9 ml LA A4 area: 22.6 cm2 SI(MOD-sp4): 15.2 ml/m2 LA dimension(2D): 4.2 cm RA A4 area: 12.2 cm2 Doppler Measurements & Calculations MV E max rose marie: 80.1 cm/sec Ao V2 max: 122.9 cm/sec LV V1 max: 103.7 cm/sec Ao max P.1 mmHg LV V1 max P.3 mmHg Ao V2 mean: 91.5 cm/sec LV V1 mean P.4 mmHg Ao mean P.7 mmHg LV V1 mean: 73.4 cm/sec Ao V2 VTI: 28.3 cm LV V1 VTI: 20.6 cm AV (velocity ratio): 0.73 SUSAN(I,D): 2.3 cm2 SUSAN(V,D): 2.7 cm2 SV(LVOT): 65.8 ml PA V2 max: 108.7 cm/sec PA V2 mean: 74.6 cm/sec ECHO/Echo Complete Interpretation Summary The left atrium is moderately enlarged. Trivial mitral valve insufficiency. The estimated ejection fraction is 50 %. Ordering Physician: Quentin Stoddard Referring Physician: Quentin Stoddard Performed By: Samantha Wiggins RCS
== END | disposition home or self-care (01) ==
PROVIDERS: PCP Family Medicine; Referring Provider Internal Medicine Cardiovascular Disease; Visit Provider Internal Medicine Cardiovascular Disease
DX: I25.10 Atherosclerotic heart disease of native coronary artery without angina pectoris (principal)
CPT/HCPCS: 93306

== ENCOUNTER → 2025-02-28 | Outpatient (CLI) | payer MEDICARE, SELFPAY ==
--- NOTE | 2025-02-28 12:03 | RAD_ITS ---
PROCEDURE: CHEST PA AND LATERAL 02/28/2025 REASON FOR EXAM: SOB TECHNIQUE: Procedure Code: RADCXR Modality: DX Procedure: CHEST PA AND LATERAL FINDINGS: The heart is normal in size. Faint reticular opacities of the lung bases which may represent edema or infiltrate. No pleural effusion or pneumothorax. No acute osseous abnormalities. RAD/Chest PA and Lateral IMPRESSION: Bibasilar mild edema or infiltrate. Reading Location: [id number]
[2025-02-28 14:23] LABS: Anion Gap 12 (5-15); BUN 12 mg/dL (4-19); BUN/Creat Ratio 14.0 RATIO (10-20); Calcium,Total 9.6 mg/dL (7.6-11.0); Carbon Dioxide 23.7 mmol/L (21.0-32.0); Chloride 104 mmol/L (98-108); Glucose 108 mg/dL (70-99); Potassium 4.6 mmol/L (3.3-5.1); Pro- Brain NATRIURETIC PEPTIDE 408 pg/mL (<=900)
== END | disposition home or self-care (01) ==
LOC: RAD 11:51
PROVIDERS: PCP Family Medicine; Referring Provider Nurse Practitioner Gerontology; Visit Provider Nurse Practitioner Gerontology
DX: R06.02 Shortness of breath (principal)
CPT/HCPCS: 36415; 71046; 80048; 83880

== ENCOUNTER → 2025-03-07 | Outpatient (CLI) | payer MEDICARE, SELFPAY | END | disposition home or self-care (01) | PROVIDERS: PCP Family Medicine; Referring Provider Nurse Practitioner Gerontology; Visit Provider Nurse Practitioner Gerontology | DX: R06.02 Shortness of breath (principal) | CPT/HCPCS: 94060; 94726; 94729 ==